=== PATIENT | male | born 1955 | race African-American/Black ===

== ENCOUNTER 2017-04-22 14:09 | Outpatient (CLI) | payer OTHER ==
--- NOTE | 2017-04-22 17:59 | RAD ---
THREE VIEWS LUMBAR SPINE 04/22/17 HISTORY: Disability evaluation, low back pain. COMPARISON: 10/17/09. FINDINGS: Again noted are five nonribbearing lumbar type vertebral bodies. Multilevel osteophytes are present. The vertebral body heights and intervertebral disc spaces appear to be within normal limits, although there is slight narrowing of the L4-5 intervertebral disc space. No fracture or subluxation is seen. Irregular radiopaque density overlies the right upper quadrant which may be related to ingested mate rial within bowel. Vascular calcifications again overlie the pelvis. IMPRESSION: 1. Degenerative changes in the lumbar spine, but no fracture or subluxation is identified. 2. Irregular subcentimeter radiopaque density overlies the posterior aspect of the right upper q uadrant. This could potentially represent ingested material within bowel, but this is difficult to fu rther localize. POS: AN
== END 2017-04-22 14:10 | disposition home or self-care (01) ==
LOC: NAV RAD 14:09
PROVIDERS: ATTEND Family Medicine
DX: M54.5 Low back pain (principal); M47.816 Spondylosis without myelopathy or radiculopathy, lumbar region
CPT/HCPCS: 72100

== ENCOUNTER 2024-06-24 13:15 | Emergency (ER) | payer MEDICARE, SELFPAY ==
[2024-06-24] MEDS ORDERED: Mag-Al Plus 1200/1200/120 MG (30 mL) UDCUP ONE (13:59)
[2024-06-24] MEDS ORDERED: Pantoprazole 40 MG VIAL ONE (13:59)
[2024-06-24] MEDS ORDERED: Lidocaine Viscous Sol 2% 15 ml UD Cup ONE (13:59)
[2024-06-24 14:17] LABS: Hematocrit 36.9 % (42.0-52.0); Hemoglobin 11.1 g/dL (14.0-18.0); Mean Corpuscular Hemoglobin 24.8 pg (27.0-31.0); Mean Corpuscular Volume 82.6 fl (78.0-98.0); Mean Platelet Volume 6.5 fL (7.4-10.4); Platelet Count 338 10x3/uL (130-400); RBC Distribution Width 16.2 % (11.5-14.5); Red Blood Cell (RBC) Count 4.47 mill/uL (4.70-6.10); White Blood Cell (WBC) Count 5.4 10x3/uL (4.8-10.8)
[2024-06-24 14:20] LABS: Troponin I Less than 0.010 ng/mL (< 0.028)
[2024-06-24 14:29] LABS: ALT (SGPT) 13 U/L (Less than 45); AST (SGOT) 13 U/L (11-34); Albumin 4.1 g/dL (3.1-4.5); Alkaline Phosphatase 56 U/L (40-110); Anion Gap 11 mmol/L (10-20); BUN (Urea Nitrogen) 10 mg/dL (8.4-25.7); Bilirubin, Total 0.2 mg/dL (0.3-1.2); Calc. Creatinine Clearance 0 mL/min (70-130); Calcium 9.7 mg/dL (7.8-10.44); Carbon Dioxide 26 mmol/L (23-31); Chloride 105 mmol/L (98-107); Estimated GFR 92; Globulin 3.4 g/dL (2.4-3.5); Glucose 86 mg/dL (80-115); Lipase 29 U/L (8-78); Potassium 4.3 mmol/L (3.5-5.1); Protein, Total 7.5 g/dL (5.8-8.1); Sodium 138 mmol/L (136-145)
[2024-06-24 14:35] LABS: MDiff Complete? YES
[2024-06-24 14:41] LABS: Band 1 % (5-11); Eosinophils 2 % (0-10); Lymphocytes 37 % (21-51); Monocytes 5 % (0-10); Neutrophil 53 % (42-75)
[2024-06-24 14:43] LABS: Anisocytosis SLIGHT = 6-15 cells (100X) (0-5/hpf); Hypochromia MODERATE=16-30 cells (100X) (0-5/hpf); Poikilocytosis SLIGHT = 6-15 cells (100X) (0-5/hpf); Schistocytes SLIGHT = 2-5 cells (100X) (0-1/hpf); Target Cells SLIGHT = 2-5 cells (100X) (0-1/hpf)
[2024-06-24 14:45] LABS: Platelet Adequacy Comment Appears Adequate
== END 2024-06-24 15:20 | disposition home or self-care (01) ==
LOC: NAV ERS 13:15
DX: K29.00 Acute gastritis without bleeding (principal); E78.00 Pure hypercholesterolemia, unspecified; Z87.891 Personal history of nicotine dependence; Z79.899 Other long term (current) drug therapy
CPT/HCPCS: 71045; 80053; 83690; 84484; 85025; 93005; 96374; J2470